=== PATIENT | female | born 1960 | race African-American/Black ===

== ENCOUNTER 2018-11-07 21:52 | Emergency (ER) | payer BC ==
[2018-11-07] MEDS ORDERED: methylPREDNISolone Acetate 40 mg/ml Vial ONE (22:09)
[2018-11-07] MEDS ORDERED: Naproxen 500 MG TAB ONE (22:09)
[2018-11-07 22:29] LABS: Bilirubin Small (Negative); Blood, Urine Moderate (Negative); Clarity Clear (Clear); Glucose, Urine (Dipstick) Negative (Negative); Leukocyte Negative (Negative); Nitrite Negative (Negative); Protein, Urine (Dipstick) Trace mg/dL (Neg-Trace); Specific Gravity, Urine 1.032 (1.002-1.036); Urobilinogen 0.2 mg/dL (0.2-1.0)
[2018-11-07 22:30] LABS: Bacteria/HPF None Seen HPF (None Seen); Squamous Epithelial 0-3 HPF (0-3); WBC/HPF None Seen HPF (0-3)
== END 2018-11-07 22:41 | disposition home or self-care (01) ==
LOC: NAV ERS 21:52
DX: J32.9 Chronic sinusitis, unspecified (principal); R31.29 Other microscopic hematuria; J06.9 Acute upper respiratory infection, unspecified; I10 Essential (primary) hypertension; F17.210 Nicotine dependence, cigarettes, uncomplicated; Z79.899 Other long term (current) drug therapy; Z79.82 Long term (current) use of aspirin
CPT/HCPCS: 81003; 81015; 96372; J1030